=== PATIENT | male | born 2000 | race Two or more races ===

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

== ENCOUNTER 2019-01-05 18:44 | Emergency (ER) | payer MEDICAID ==
[~2019-01-05] VITALS: Ht 165.1 cm; Wt 68.0 kg
[2019-01-05 18:47] VITALS: BP 128/59
== END 2019-01-05 21:01 | disposition home or self-care (01) ==
LOC: ER 18:56
DX: S01.112D Laceration without foreign body of left eyelid and periocular area, subsequent encounter (principal); X58.XXXD Exposure to other specified factors, subsequent encounter

== ENCOUNTER 2023-08-10 12:45 | Emergency (ER) | payer MEDICAID ==
[~2023-08-10] VITALS: Ht 165.1 cm; Wt 68.0 kg
[2023-08-10] MEDS ORDERED: AZIT1POW PO (14:34)
[2023-08-10 19:20] VITALS: BP 125/65; PULSE 53; RESP 18; TEMP 98.2; O2SAT 100
== END 2023-08-10 19:29 | disposition home or self-care (01) ==
LOC: ER 12:49
DX: J01.90 Acute sinusitis, unspecified (principal); Z79.899 Other long term (current) drug therapy
CPT/HCPCS: 70210